=== PATIENT | male | born 1995 | race Two or more races ===

== ENCOUNTER 2020-03-30 19:09 | Emergency (ER) | payer MEDICAID ==
[2020-03-30 19:14] VITALS: BP 125/66
--- NOTE | 2020-03-30 19:35 | ER Document Report ---
HPI - HPI Patient complains to provider of: Skin problem Time Seen by Provider: 03/30/20 19:27 Notes: 24-year-old male to the emergency department with complaints of a painful red area to his midline back. He states that he is concerned for staph infection. He states that his daughter was just recently diagnosed with staph as well as his . He was told by the pediatricians that is very contagious. He states that this area popped up on his back yesterday and his pointed out to him. He denies any fevers or chills. He denies any chest pain or shortness of breath. He denies any drainage from the site. - ROS Systems Reviewed and Negative: Yes All other systems reviewed and negative - CONSTITUTIONAL Constitutional: DENIES: Fever, Chills - EENT EENT: DENIES: Sore Throat, Ear Pain, Congestion - NEURO Neurology: DENIES: Headache - CARDIOVASCULAR Cardiovascular: DENIES: Chest pain - RESPIRATORY Respiratory: DENIES: Trouble Breathing, Coughing - GASTROINTESTINAL Gastrointestinal: DENIES: Abdominal Pain, Nausea, Patient vomiting, Diarrhea - MUSCULOSKELETAL Musculoskeletal: DENIES: Extremity pain, Back Pain, Neck Pain - DERM Skin Color: Normal Skin Problems: Pustule - To the upper back Past Medical History - General Information source: Patient - Social History Smoking Status: Never Smoker Frequency of alcohol use: None Drug Abuse: None Family History: Reviewed & Not Pertinent Vertical Provider Document - CONSTITUTIONAL Agree With Documented VS: Yes Exam Limitations: No Limitations General Appearance: WD/WN - HEENT HEENT: Atraumatic, Normocephalic, PERRLA - NECK Neck: Normal Inspection, Supple - RESPIRATORY Respiratory: Breath Sounds Normal, No Respiratory Distress. negative: Rales, Rhonchi, Wheezing - CARDIOVASCULAR Cardiovascular: Regular Rate, Regular Rhythm, No Murmur - GI/ABDOMEN Gastrointestinal: Abdomen Soft, Abdomen Non-Tender, No Organomegaly - BACK Back: negative: CVA Tenderness-Right, CVA Tenderness-Left - MUSCULOSKELETAL/EXTREMETIES Musculoskeletal/Extremeties: MAEW, FROM, Non-Tender - NEURO Level of Consciousness: Awake, Alert, Appropriate Motor/Sensory: No Motor Deficit, No Sensory Deficit - DERM Integumentary: Warm, Dry Notes: There is a 2 cm area of erythema with pustule to the back. There is no elder induration or fluctuation. There is no streaking lymph angitis. Likely in close comedone Course - Re-evaluation Re-evalutation: 03/31/20 00:15 Impression: folliculitis, pustule. Suspect that this is more of a closed comedone but given the patient's recent history of daughter and with both staph infections; will cover with Bactrim. I have advised him to monitor the area closely. He is to return if it gets worse at all. He is asked to return if any fevers, chills or any other concerning symptoms. Patient agrees with the plan. - Vital Signs Vital signs: Temp Pulse Resp BP Pulse Ox 98.2 F 90 16 125/66 99 03/30/20 19:14 03/30/20 19:14 03/30/20 19:14 03/30/20 19:14 03/30/20 19:14 Discharge - Discharge Clinical Impression: Folliculitis, Acne vulgaris Condition: Stable Disposition: HOME, SELF-CARE Instructions: Folliculitis ([facility]) Additional Instructions: Take all antibiotics as prescribed. Monitor the area closely, complete all antibiotics. Return if worsening symptoms. Prescriptions: Sulfamethoxazole/Trimethoprim [Bactrim Ds Tablet] 1 each PO BID #20 tablet Referrals: [facility] [Provider Group] - Follow up as needed
== END 2020-03-30 19:35 | disposition home or self-care (01) ==
LOC: ER 19:09
DX: L73.9 Follicular disorder, unspecified (principal); L70.0 Acne vulgaris
CPT/HCPCS: 99283

== ENCOUNTER 2020-06-25 22:47 | Emergency (ER) | payer MEDICAID ==
[2020-06-26] MEDS ORDERED: LIDOCAINE 1% INJ (10 MG/ML) 10 ML MDV INJ ONE (00:29)
--- NOTE | 2020-06-26 00:32 | ER Document Report ---
ED Medical Screen (RME) - General Chief Complaint: Low Back Pain Stated Complaint: BUMP ON LOWER BACK Time Seen by Provider: 06/26/20 00:27 Mode of Arrival: Ambulatory Information source: Patient - HPI Patient complains to provider of: Bump on buttocks Notes: 06/26/20 00:31 Patient with complaints of a bump on his buttocks. States been there for the la [facility] several days and getting bigger. No fever. Exam: Nontoxic, no distress. No respiratory distress. Small fluctuant abscess near the top of the gluteal cleft. An initial examination was made on the patient as part of the triage process, and it was determined a more comprehensive evaluation was necessary. Initial orders were placed and patient was transferred to another provider in the ED who assumed care and finished evaluation and plan. Physical Exam - Vital signs Vitals: Temp Pulse Resp BP Pulse Ox 98.1 F 67 17 123/63 99 06/25/20 23:17 06/25/20 23:17 06/25/20 23:17 06/25/20 23:17 06/25/20 23:17 Course - Vital Signs Vital signs: Temp Pulse Resp BP Pulse Ox 98.1 F 67 17 123/63 99 06/25/20 23:17 06/25/20 23:17 06/25/20 23:17 06/25/20 23:17 06/25/20 23:17
--- NOTE | 2020-06-26 03:18 | ER Document Report ---
HPI - HPI Time Seen by Provider: 06/26/20 00:27 Pain Level: Denies Context: Patient is a 25-year-old male who comes emergency department for chief complaint of a bump at the top of his left buttock and lower back area. He states the area has been worsening and increasing in size for the past several days. He states the area feels irritated but is not specifically painful. He states occasionally it itches slightly. He denies drainage from the area. He denies history of the same. He denies fever/chills, he denies any other symptoms. He denies IV drug abuse, denies any daily medications or diagnosed medical history. Past Medical History - General Information source: Patient - Social History Smoking Status: Never Smoker Frequency of alcohol use: None Drug Abuse: None Lives with: Family Family History: Reviewed & Not Pertinent Patient has homicidal ideation: No Vertical Provider Document - CONSTITUTIONAL General Appearance: WD/WN, No Apparent Distress - HEENT HEENT: Atraumatic, Normocephalic - NECK Neck: Normal Inspection - RESPIRATORY Respiratory: Breath Sounds Normal, No Respiratory Distress - CARDIOVASCULAR Cardiovascular: Regular Rate, Regular Rhythm - GI/ABDOMEN Gastrointestinal: Abdomen Soft, Abdomen Non-Tender - BACK Back: Normal Inspection - MUSCULOSKELETAL/EXTREMETIES Musculoskeletal/Extremeties: MAEW, FROM, Non-Tender - NEURO Level of Consciousness: Awake, Alert, Appropriate Motor/Sensory: No Motor Deficit, No Sensory Deficit - DERM Integumentary: Warm, Dry. negative: Abscess - There is a mildly erythematous nontender area over the left lower back and upper buttock which is somewhat circular. There is no induration, there is no fluctuance, there is no drainage from the area, there is no streaking away from the area, there is no noted cellulitis around the area. Otherwise Course - Re-evaluation Re-evalutation: Exam shows what appears to be a resolving skin infection without induration or fluctuance, there is no cellulitis, there is no streaking away from the area, patient has unremarkable vital signs, patient is able to sit on the area without tenderness, I do not see any drainable abnormality. Patient was placed on Bactrim, I discussed monitoring, care, return precautions. Patient states understanding and agreement. - Vital Signs Vital signs: Temp Pulse Resp BP Pulse Ox 98.1 F 67 17 123/63 99 06/25/20 23:17 06/25/20 23:17 06/25/20 23:17 06/25/20 23:17 06/25/20 23:17 - Laboratory Results Critical Laboratory Results Reviewed: No Critical Results - Radiology Results Critical Radiology Results Reviewed: No Critical Results Discharge - Discharge Clinical Impression: Skin infection Condition: Stable Disposition: HOME, SELF-CARE Additional Instructions: The areas consistent with a skin infection but there is no drainable abscess or other concerning findings noted. Take the antibiotic as prescribed, I recommend applying a warm compress to the area several times a day, this should simply go away with time. Follow-up with primary care. Return if you worsen including worsening swelling of the area, spreading redness, developing fever/chills, or any other concerning or worsening symptoms. Prescriptions: Sulfamethoxazole/Trimethoprim [Bactrim Ds Tablet] 1 each PO BID #14 tablet Forms: Return to Work
[2020-06-26 03:39] VITALS: BP 115/60
== END 2020-06-26 03:38 | disposition home or self-care (01) ==
LOC: ER 22:47
DX: L08.9 Local infection of the skin and subcutaneous tissue, unspecified (principal); M54.5 Low back pain
CPT/HCPCS: 99283

== ENCOUNTER 2020-06-30 14:01 | Emergency (ER) | payer MEDICAID ==
[2020-06-30 14:05] VITALS: BP 126/78
--- NOTE | 2020-06-30 14:26 | ER Document Report ---
HPI - HPI Time Seen by Provider: 06/30/20 14:22 Pain Level: 2 Context: Patient is a 25-year-old male presents emergency department with a chief complaint of possible abscess. Patient reports he was seen here 5 days ago and diagnosed with a skin infection. At that time there was no obvious sign of an abscess and was treated with Bactrim. States that he did start taking the Bactrim as prescribed. Has not been performing the warm compresses as indicated. Patient reports this morning he noticed drainage from the area. He states he has not noticed that it is gotten significantly worse but would like it checked out by a medical professional. - REPRODUCTIVE Reproductive: DENIES: : Past Medical History - General Information source: Patient - Social History Smoking Status: Unknown if Ever Smoked Frequency of alcohol use: None Drug Abuse: None Lives with: Family Family History: Reviewed & Not Pertinent - Past Medical History Cardiac Medical History: Reports: None Pulmonary Medical History: Reports: None EENT Medical History: Reports: None Neurological Medical History: Reports: None Endocrine Medical History: Reports: None Renal/ Medical History: Reports: None Malignancy Medical History: Reports None GI Medical History: Reports: None Musculoskeletal Medical History: Reports None Skin Medical History: Reports None Psychiatric Medical History: Reports: None Traumatic Medical History: Reports: None Infectious Medical History: Reports: None Vertical Provider Document - CONSTITUTIONAL Agree With Documented VS: Yes Exam Limitations: No Limitations General Appearance: No Apparent Distress - HEENT HEENT: Atraumatic, Normal ENT Exam, Normocephalic - RESPIRATORY Respiratory: Breath Sounds Normal, No Respiratory Distress - CARDIOVASCULAR Cardiovascular: Regular Rate, Regular Rhythm - GI/ABDOMEN Gastrointestinal: Abdomen Soft, Abdomen Non-Tender, Normal Bowel Sounds - MUSCULOSKELETAL/EXTREMETIES Musculoskeletal/Extremeties: FROM - NEURO Level of Consciousness: Awake, Alert, Appropriate - DERM Notes: Right upper inner buttocks, there is a 0.5 cm x 0.5 cm raised area of erythema. There is fluctuance and an open area to the center of the wound. This is draining. No surrounding erythema Course - Re-evaluation Re-evalutation: 06/30/20 16:20 At this time the wound remains small, is starting to drain on its own, patient states he has not been using the warm compresses. Please start using warm c ompresses and taking the antibiotic. Please return symptoms worsen or change. - Vital Signs Vital signs: Temp Pulse Resp BP Pulse Ox 97.6 F 71 16 126/78 H 100 06/30/20 14:04 06/30/20 14:04 06/30/20 14:04 06/30/20 14:04 06/30/20 14:04 - Laboratory Results Critical Laboratory Results Reviewed: No Critical Results - Radiology Results Critical Radiology Results Reviewed: No Critical Results Discharge - Discharge Clinical Impression: Abscess Condition: Stable Disposition: HOME, SELF-CARE Additional Instructions: *Today you were seen for a wound evaluation. The small abscess is draining on its own, there is no indication that an incision and drainage is to be performed today. It is vital that you start and continue with warm compresses until resolution. Expect drainage. If you become significantly painful, more swelling, increased redness please return. Continue the Bactrim as prescribed which is the antibiotic. ABSCESS: You have an abscess (boil). This a pus-forming infection, usually due to staph. Some boils may be left to drain on their own, but most require lancing. From the time the tender lump first appears, it may be three or four days before the abscess is ready to emilie. Local heat and rest help at this stage of treatment. An antibiotic may prevent spread of the infection. Once the abscess is opened, packing may be placed into it. This is done so pus is not sealed inside by premature closure of the cavity. The packing will be removed at your follow-up visit or you may be advised to remove it yourself at home. Sometimes this packing must be replaced a few times during healing. The wound will heal with surprisingly little scar. Depending on the size and location of an abscess, healing can take one to four weeks. You may shower and wash the area around the incision site two or three times a day. Antibiotics may be prescribed, but are usually not necessary after an abscess has been drained. If you develop fever, chills, worsening pain, or increasing swelling in the area, call the doctor or return immediately. FOLLOW-UP CARE: Most simple abscesses will not require a follow up visit. If you had packing placed in the abscess, remove it as instructed by the physician. If you have been referred to a physician for follow-up care, call the physicians office for an appointment as you were instructed or within the next two days. If you experience worsening or a significant change in your symptoms, return to the Emergency Department at any time for re-evaluation.
== END 2020-06-30 16:30 | disposition home or self-care (01) ==
LOC: ER 14:01
DX: L02.91 Cutaneous abscess, unspecified (principal)
CPT/HCPCS: 99282